=== PATIENT | female | born 1980 | race Caucasian/White ===

== ENCOUNTER 2021-07-19 07:24 | Emergency (ER) | payer OTHER ==
[~2021-07-19] VITALS: Ht 160 cm; Wt 68.0 kg
[2021-07-19] MEDS ORDERED: PREDNISONE 20 M20 M1 PO (07:55)
[2021-07-19] MEDS ORDERED: HYDROXYZINE HCL25 M2 PO (07:55)
[2021-07-19 08:23] VITALS: BP 124/68
== END 2021-07-19 08:24 | disposition home or self-care (01) ==
LOC: M.ERS 07:24
DX: R21 Rash and other nonspecific skin eruption (principal); Z88.2 Allergy status to sulfonamides